=== PATIENT | female | born 1995 | race Caucasian/White ===

== ENCOUNTER 2016-12-14 17:54 | Emergency (ER) | payer OTHER ==
[~2016-12-14] VITALS: Ht 154.9 cm; Wt 56.1 kg
[2016-12-14 17:58] VITALS: Ht 154.9 cm; Wt 56.1 kg
[2016-12-14] MEDS ORDERED: ALBUT/IPRATROP 3MG/0.5MG NEB 3 ML VIAL INH STA (18:39)
[2016-12-14] MEDS ORDERED: SODIUM CHLORIDE 0.9% 1000ML 1,000 ML IV STA ×2 (18:39→19:43)
[2016-12-14] MEDS ORDERED: BCPILLS PO (18:52)
[2016-12-14] MEDS ORDERED: CYAN100020 PO (18:52)
[2016-12-14] MEDS ORDERED: GUAISYP8 PO (18:52)
[2016-12-14] MEDS ORDERED: IBUP-1050 PO (18:52)
[2016-12-14 19:05] VITALS: O2SAT 95
[2016-12-14 19:15] LABS: BASO % 0.3 %; BASO ABS # 0.03 K/uL (0-0.2); COMPLETE YES; EOS % 1.8 %; HEMATOCRIT 38.9 % (37-47); IG% 0.3 %; LYMPH % 9.2 %; LYMPH ABS # 0.87 K/uL (1.2-3.4); MEAN CELL VOLUME 85.3 fL (80-100); MEAN CORPUSCULAR HEMOGLOBIN 28.9 pg (25-34); MEAN CORPUSCULAR HGB CONC 33.9 g/dl (32-36); MEAN PLATELET VOLUME 9.6 fL (7.4-10.4); MONO % 4.4 %; PLATELET COUNT 350 K/uL (130-400); RED BLOOD COUNT 4.56 M/uL (4.2-5.4); WHITE BLOOD COUNT 9.45 K/uL (4.8-10.8)
[2016-12-14 19:19] VITALS: TEMP 37.5
[2016-12-14] MEDS ORDERED: HYDROCODONE/HOMATROPINE SYRUP 5MG/1.5MG 5ML UDP PO STA (19:25)
[2016-12-14 19:33] LABS: BUN/CREATININE RATIO 12.9 (10-20); CALCIUM 9.2 mg/dl (8.5-10.1); CREATININE 0.7 mg/dl (0.60-1.20); POTASSIUM 3.2 mmol/L (3.5-5.1)
[2016-12-14 19:36] LABS: ALB/GLOB RATIO 0.7 (0.9-2)
--- NOTE | 2016-12-14 20:25 | DIAGNOSTIC IMAGING REPORT ---
CHEST 2 VIEWS ROUTINE HISTORY: cough, fever COMPARISON: None. FINDINGS: No pneumothorax. No pleural effusions. The heart is normal in size. The left lung is clear. Right middle lobe consolidation. There are few patchy densities within the right lung base. IMPRESSION: Right middle lobe and right lower lobe airspace opacities consistent with a pneumonia. Recommend follow-up to ensure resolution. Electronically signed by: Yao Casey M.D. 12/14/2016 8:23 PM Dictated Date/Time: 12/14/2016 8:23 PM
[2016-12-14] MEDS ORDERED: AZITHROMYCIN 250 MG TAB PO STA (21:01)
[2016-12-14] MEDS ORDERED: AZIT250T PO (21:25)
--- NOTE | 2016-12-14 21:27 | EMERGENCY ROOM VISIT NOTE ---
History First contact with patient: 18:18 Chief Complaint: FLU LIKE SX Stated Complaint: FEVER 103+ FOR 5 DAYS, BAD COUGH, VOMITING, [place] History of Present Illness The patient is a 21 year old female who presents to the Emergency Room with complaints of fever and cough for the past 5 days. The patient states that she has had a productive cough and high fevers, up to 103F. She reports that she initially developed fevers 5 days ago, then developed a cough. She does report that today, she coughed so hard that she had one episode of emesis. She was seen at urgent care 3 days ago and given cough medication. She states that they did an influenza B swab which was negative, but did not test for influenza A. She states that she has been more tired than usual and has not had much of an appetite. She reports a slight headache but denies any neck pain or stiffness. She reports associated body aches and sore throat. She denies any abdominal pain, shortness of breath, chest pain, neck pain/stiffness or changes in bowel movements. Review of Systems A complete 10-point Review of Systems was discussed with the patient, with pertinent positives and negatives listed in the History of Present Illness. All remaining Review of Systems questions can be considered negative unless otherwise specified. Social History Smoking Status: Never Smoker Current/Historical Medications Scheduled Azithromycin (Zithromax), 250 MG PO DAILY Control Pills ( Control Pills), 1 TAB PO DAILY Cyanocobalamin (Vitamin B12), 1 TAB PO DAILY Scheduled PRN Guaifenesin-Codeine (Guaiatussin Ac), 5 ML PO Q4-6HRS PRN for Cough Ibuprofen (Advil), 600-800 MG PO Q6-8HRS PRN for Pain or Fever Allergies Coded Allergies: No Known Allergies (Unverified , 12/14/16) Physical Exam Vital Signs Date Time Temp Pulse Resp B/P Pulse Ox O2 Delivery O2 Flow Rate FiO2 12/14/16 21:40 104 18 122/74 97 12/14/16 20:31 118 18 126/85 96 Room Air 12/14/16 19:19 37.5 12/14/16 19:11 122 12/14/16 19:08 122 22 135/93 99 Room Air 12/14/16 19:05 95 Room Air 12/14/16 17:58 38.7 132 18 122/79 94 Room Air Physical Exam VITALS: Vitals are noted on the nurse's note and reviewed by myself. Vital signs stable. GENERAL: This is a 21-year-old female, in no acute distress, nondiaphoretic, well-developed well-nourished. SKIN: The skin was without rashes. HEAD: Normocephalic atraumatic. EARS: External auditory canals clear, tympanic membranes pearly rosario without erythema or effusion bilaterally. EYES: Pupils equal round and reactive to light and accommodation. Conjunctivae without injection, sclerae without icterus. NOSE: Patent, turbinates without inflammation or discharge. No sinus tenderness. MOUTH: Mucous membranes moist. Tonsils are not enlarged. Pharynx without erythema or exudate. NECK: Supple without nuchal rigidity. No lymphadenopathy. No meningismus. HEART: Regular rate and rhythm without murmurs gallops or rubs. LUNGS: Breath sounds slightly decreased at right base. No retractions or accessory muscle use. ABDOMEN: Positive bowel sounds x 4. Soft, nontender to palpation. NEURO: Patient was alert and oriented to person place and time. Medical Decision & Procedures ER Provider Diagnostic Interpretation: CHEST 2 VIEWS ROUTINE HISTORY: cough, fever COMPARISON: None. FINDINGS: No pneumothorax. No pleural effusions. The heart is normal in size. The left lung is clear. Right middle lobe consolidation. There are few patchy densities within the right lung base. IMPRESSION: Right middle lobe and right lower lobe airspace opacities consistent with a pneumonia. Recommend follow-up to ensure resolution. Laboratory Results 12/14/16 19:00 Red Blood Count 4.56, Mean Corpuscular Volume 85.3, Mean Corpuscular Hemoglobin 28.9, Mean Corpuscular Hemoglobin Concent 33.9, Mean Platelet Volume 9.6, Neutrophils (%) (Auto) 84.0, Lymphocytes (%) (Auto) 9.2, Monocytes (%) (Auto) 4.4, Eosinophils (%) (Auto) 1.8, Basophils (%) (Auto) 0.3, Neutrophils # (Auto) 7.93, Lymphocytes # (Auto) 0.87, Monocytes # (Auto) 0.42, Eosinophils # (Auto) 0.17, Basophils # (Auto) 0.03 12/14/16 19:00 Test 12/14/16 18:34 12/14/16 19:00 12/14/16 19:07 Influenza Type A Antigen Neg for Influ A (NEG) Influenza Type B Antigen Neg for Influ B (NEG) White Blood Count 9.45 K/uL (4.8-10.8) Red Blood Count 4.56 M/uL (4.2-5.4) Hemoglobin 13.2 g/dL (12.0-16.0) Hematocrit 38.9 % (37-47) Mean Corpuscular Volume 85.3 fL (80-100) Mean Corpuscular Hemoglobin 28.9 pg (25-34) Mean Corpuscular Hemoglobin Concent 33.9 g/dl (32-36) Platelet Count 350 K/uL (130-400) Mean Platelet Volume 9.6 fL (7.4-10.4) Neutrophils (%) (Auto) 84.0 % Lymphocytes (%) (Auto) 9.2 % Monocytes (%) (Auto) 4.4 % Eosinophils (%) (Auto) 1.8 % Basophils (%) (Auto) 0.3 % Neutrophils # (Auto) 7.93 K/uL (1.4-6.5) Lymphocytes # (Auto) 0.87 K/uL (1.2-3.4) Monocytes # (Auto) 0.42 K/uL (0.11-0.59) Eosinophils # (Auto) 0.17 K/uL (0-0.5) Basophils # (Auto) 0.03 K/uL (0-0.2) RDW Standard Deviation 42.9 fL (36.4-46.3) RDW Coefficient of Variation 13.9 % (11.5-14.5) Immature Granulocyte % (Auto) 0.3 % Immature Granulocyte # (Auto) 0.03 K/uL (0.00-0.02) Anion Gap 12.0 mmol/L (3-11) Est Creatinine Clear Calc Drug Dose 95.9 ml/min Estimated GFR () 143.5 Estimated GFR (Non- 123.9 BUN/Creatinine Ratio 12.9 (10-20) Calcium Level 9.2 mg/dl (8.5-10.1) Total Bilirubin 0.3 mg/dl (0.2-1) Aspartate Amino Transf (AST/SGOT) 34 U/L (15-37) Alanine Aminotransferase (ALT/SGPT) 37 U/L (12-78) Alkaline Phosphatase 52 U/L (45-117) Total Protein 8.4 gm/dl (6.4-8.2) Albumin 3.4 gm/dl (3.4-5.0) Globulin 5.0 gm/dl (2.5-4.0) Albumin/Globulin Ratio 0.7 (0.9-2) Bedside Lactic Acid Venous 0.74 mmol/L (0.90-1.70) Medications Administered Medications (Trade) Dose Ordered Sig/Laisha Route Start Time Stop Time Status Last Admin Dose Admin Sodium Chloride (Nss 1000ml) 1,000 ml @ 999 mls/hr Q1H1M STAT IV 12/14/16 18:39 12/14/16 19:39 DC 12/14/16 18:39 999 MLS/HR Albuterol/ Ipratropium (Duoneb) 3 ml NOW STAT INH 12/14/16 18:39 12/14/16 18:43 DC 12/14/16 18:39 3 ML Hydrocodone Bit/ Homatropine Methylb 10 ml 10 ml NOW STAT PO 12/14/16 19:25 12/14/16 19:26 DC 12/14/16 19:25 10 ML Sodium Chloride (Nss 1000ml) 1,000 ml @ 999 mls/hr Q1H1M STAT IV 12/14/16 19:43 12/14/16 20:43 DC 12/14/16 19:43 999 MLS/HR Azithromycin (Zithromax Tab) 500 mg NOW STAT PO 12/14/16 21:01 12/14/16 21:02 DC 12/14/16 21:12 500 MG Albuterol (Ventolin Hfa Inhaler) 2 puffs NOW ONCE INH 12/14/16 21:30 12/14/16 21:31 DC 12/14/16 21:30 2 PUFFS ED Course The patient was evaluated as above. Labs were drawn and IV access was obtained. Blood cultures were drawn 2. Patient was medicated with 1 L normal saline solution and a DuoNeb treatment. Chest x-ray was performed and read by radiology as above. Patient was reevaluated and felt slightly improved after the DuoNeb treatment. She requested something for cough and was given Hycodan syrup. She was given an additional 1 L of fluids. []Discharge instructions were reviewed with the patient. The patient verbalized understanding of my assessment and treatment plan and was discharged home in good condition. Medical Decision Differential diagnosis includes influenza, pneumonia, sepsis, viral syndrome, upper respiratory infection, among others. The patient is a 21-year-old female who presents today complaining of fevers and cough. Labs revealed no leukocytosis, anemia or concerning electrolyte abnormalities. Chest x-ray was read by radiology and was suggestive of a right middle and lower lobe pneumonia. The patient was persistently tachycardic, likely secondary to her fever. I do not feel that she is septic. Lactic acid was not elevated. Her temperature did improve after ibuprofen. I do feel that she can be treated as an outpatient with Zithromax, but she was instructed to return immediately if she has worsening symptoms. She will need follow-up with [facility] to ensure resolution of her symptoms. The patient's case was reviewed with Dr. Capellan, ED attending physician, who agreed with my assessment and treatment plan. Based on the patient's presentation and work up, I feel the patient is stable for outpatient treatment. The patient was educated to the emergency department for any worsening of their current condition or new/concerning symptoms. She will follow up with [facility]. Impression Primary Impression: Pneumonia Departure Information Dispostion Home / Self-Care Condition GOOD Prescriptions Azithromycin (Zithromax) 250 Mg Tab 250 MG PO DAILY for 4 Days, #4 TAB Prov: Maria Del Rosario Velasquez ., TIMOTEO 12/14/16 Referrals [facility] (PCP) Patient Instructions My [facility] Additional Instructions You were prescribed Zithromax to be taken once daily for the next 4 days. This is an antibiotic. All antibiotics have the potential to cause diarrhea. Stop this medication and contact a medical provider if you were to develop any significant adverse side effects including: wheezing, shortness of breath, passing out, vomiting, or a diffuse rash. Always take antibiotics as directed and COMPLETE the ENTIRE course regardless of the improvement of your symptoms. Ibuprofen, 800 mg every 6 hours to control fevers. Rest and push fluids. You should drink plenty of Gatorade and electrolyte- containing fluids. Call [facility] to schedule a follow-up appointment on Sunday or Sunday. Return to the emergency department with worsening fevers, worsening cough, shortness of breath or any other new/concerning symptoms. Problem Qualifiers Primary Impression: Pneumonia Pneumonia type: due to unspecified organism Laterality: right Lung location : middle lobe of lung Qualified Codes: J18.1 - Lobar pneumonia, unspecified organism
[2016-12-14] MEDS ORDERED: ALBUTEROL HFA 8 GM INHALER INH ONE (21:30)
[2016-12-14 21:40] VITALS: BP 122/74; PULSE 104; O2SAT 97
== END 2016-12-14 21:42 | disposition home or self-care (01) ==
LOC: C.EDB 17:55 → C.EDC 21:42
DX: J18.1 Lobar pneumonia, unspecified organism (principal); Z79.3 Long term (current) use of hormonal contraceptives; Z79.899 Other long term (current) drug therapy